=== PATIENT | male | born 1970 | race African-American/Black ===

== ENCOUNTER 2020-10-17 09:33 | Emergency (ER) | payer OTHER ==
[~2020-10-17] VITALS: Ht 182.9 cm; Wt 96.2 kg
[~2020-10-17 09:33] MED LIST: NOHOMEMEDICATIONS; NORCO 5-325 TA1 EACH PO
[2020-10-17 09:59] LABS: ABSOLUTE NEUTROPHILS 10.2 thou/uL (1.4-8.2); BASOPHILS 0.4 % (0.0-2.0); EOSINOPHILS 2.1 % (0.0-3.0); HEMATOCRIT 41.2 % (42.0-52.0); HEMOGLOBIN 13.4 gm/dL (14.0-18.0); LYMPHOCYTES 11.7 % (24.0-44.0); MCH 30.5 pg (26.0-34.0); MCHC 32.6 g/dL (28.0-37.0); MCV 93.6 fL (80.0-100.0); MONOCYTES 4.9 % (1.0-8.0); PLATELET COUNT 292 thou/uL (150-400); POLYS 80.9 % (36.0-66.0); RBC 4.41 mil/uL (4.50-6.00); RDW 12.4 % (10.5-14.5); WBC 12.6 thou/uL (4.0-11.0)
[2020-10-17 10:11] LABS: ANION GAP 11 mmol/L (7-16); BUN 7 mg/dL (7-18); CALCIUM 8.7 mg/dL (8.5-10.1); CHLORIDE 106 mmol/L (98-107); CO2 25 mmol/L (21-32); CREATININE 1.1 mg/dL (0.7-1.3); GLUCOSE 169 mg/dL (74-106); POTASSIUM 3.8 mmol/L (3.5-5.1); SODIUM 142 mmol/L (136-145)
[2020-10-17 10:21] LABS: ALBUMIN 3.7 g/dL (3.4-5.0); SGOT 10 U/L (15-37); SGPT 16 U/L (16-63); TOTAL BILIRUBIN 0.4 mg/dL (0.2-1.0); TOTAL PROTEIN 7.2 g/dL (6.4-8.2); TROPONIN-I <0.06 ng/mL (<0.06)
[2020-10-17] MEDS ORDERED: PRILOSEC OTC20 MG PO (12:45)
[2020-10-17 12:47] VITALS: BP 123/70
--- NOTE | 2020-10-18 07:11 | EKG ---
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
== END 2020-10-17 12:47 | disposition home or self-care (01) ==
LOC: ER 09:33
PROVIDERS: Emergency Medicine
DX: K29.70 Gastritis, unspecified, without bleeding (principal); K21.9 Gastro-esophageal reflux disease without esophagitis; F17.210 Nicotine dependence, cigarettes, uncomplicated